=== PATIENT | male | born 1945 ===

== ENCOUNTER → 2017-11-24 | Outpatient (CLI) | payer MEDICARE, BC ==
[~2017-11-24] MED LIST: ASPI81EC; ATOR10; DIPH50 PO; FINA5; HYDACE5 PO; MULVITMIND
== END | disposition home or self-care (01) ==
LOC: LAB SHORT 14:03 → PLD 14:03
DX: L57.0 Actinic keratosis (principal)
CPT/HCPCS: 88305

== ENCOUNTER 2019-06-15 16:28 | Emergency (ER) | payer OTHER, MEDICARE, BC ==
[~2019-06-15] VITALS: Ht 167.6 cm; Wt 72.6 kg
== END 2019-06-15 19:49 | disposition home or self-care (01) ==
LOC: ER 16:28
DX: S51.812A Laceration without foreign body of left forearm, initial encounter (principal); W29.3XXA Contact with powered garden and outdoor hand tools and machinery, initial encounter; I10 Essential (primary) hypertension; E78.5 Hyperlipidemia, unspecified
CPT/HCPCS: 12004; 90471; 90714; 99283-25

== ENCOUNTER 2023-10-22 08:50 | Inpatient (IN) | payer OTHER, MEDICARE, BC ==
[~2023-10-22] VITALS: Ht 167.6 cm; Wt 78.6 kg
[2023-10-22 09:50] LABS: BASOPHILS ABSOLUTE AUTO 0.06 K/mm3 (0.00-0.23); BASOPHILS PERCENT AUTO 0 % (0-2); EOSINOPHILS ABSOLUTE AUTO 0.21 K/mm3 (0.00-0.68); EOSINOPHILS PERCENT AUTO 2 % (0-6); Hematocrit 47.2 % (37.0-53.0); Hemoglobin 16.3 g/dL (13.5-17.5); IMMATURE GRAN ABSOLUTE AUTO 0.08 K/mm3 (0.00-0.10); IMMATURE GRAN PERCENT AUTO 1 % (0-1); LYMPHOCYTES ABSOLUTE AUTO 1.47 K/mm3 (0.84-5.20); LYMPHOCYTES PERCENT AUTO 11 % (21-46); MONOCYTES ABSOLUTE AUTO 1.22 K/mm3 (0.16-1.47); MONOCYTES PERCENT AUTO 9 % (4-13); Mean Corpuscular HGB 29.6 pg (26.0-34.0); Mean Corpuscular HGB Conc 34.5 g/dL (31.5-36.5); Mean Corpuscular Volume 86 fL (80-100); Mean Platelet Volume 10.1 fL (9.1-12.4); NEUTROPHILS ABSOLUTE AUTO 10.67 K/mm3 (1.96-9.15); NEUTROPHILS PERCENT AUTO 78 % (41-73); Platelet Count 227 K/mm3 (150-400); RDW Coefficient Variation 13.7 % (11.7-14.2); RDW Standard Deviation 42.8 fL (35.1-46.3); Red Blood Cell Count 5.51 M/mm3 (4.30-5.90); White Blood Cell Count 13.71 K/mm3 (4.00-11.30)
[2023-10-22 10:28] LABS: Albumin, Blood 3.3 g/dL (3.4-5.0); Albumin/Globulin Ratio 0.8 (0.8-1.8); Bilirubin, Total 0.9 mg/dL (0.1-1.0); Bun/Creatinine Ratio 10.6 (12.0-20.0); Calcium, Blood 9.3 mg/dL (8.5-10.1); Creatinine, Blood 1.13 mg/dL (0.60-1.20); Potassium, Blood 4.2 mmol/L (3.5-5.5); Total Protein, Blood 7.3 g/dL (6.4-8.2)
[2023-10-22] MEDS ORDERED: LOSARTAN POTASS25 M2 PO ×2 (10:36)
[2023-10-22 11:44] LABS: Anti-Xa UFH, PHA Monitoring <0.10 IU/mL; International Normalized Ratio 1.04; Prothrombin Time Results 10.9 Sec (9.7-11.5)
[2023-10-22] MEDS ORDERED: Dose Adjust by Pharmacy XX STA ×2 (11:49→19:13)
[2023-10-22] MEDS ORDERED: Heparin Sodium 5000 Units/ML 1ML MDV IV ONE (11:50)
[2023-10-22] MEDS ORDERED: Heparin Sodium,Porcine/0.5 NS 500 ML IV SCH (11:50)
[2023-10-22] MEDS ORDERED: Acetaminophen 325 MG TABLET PO PRN (15:35)
[2023-10-22] MEDS ORDERED: TraMADol HCl 50 MG Tab PO PRN (15:35)
[2023-10-22] MEDS ORDERED: FLU VACC QS2023-24(6MOS UP)/PF 60 MCG/0.5 ML SYRINGE IM SCH (15:35)
[2023-10-22 17:29] VITALS: BP 163/83
[2023-10-22 17:30] VITALS: BP 146/87
--- NOTE | 2023-10-22 17:30 | NUR ---
INITIAL ASSESSMENT PATIENT ARRIVED TO UNIT AT 1720. PATIENT ALERT AND ORIENTED X 4, AFEBRILE. PATIENT STATES HE USES A CANE TO GET AROUND AT HOME AND THAT HE TAKES CARE OF HIS . PATIENT SBA IS WEAK AND OVER-ESTIMATES HIS ABILITIES. PATIENT STATES HE IS DIZZY UPON FIRST STANDING UP. PATIENT SATTING 90% AND GREATER ON RA. LUNGS CLEAR IN UPPER LOBES AND DIMINISHED IN LOWER LOBES. PATIENT IN SR, HR IN THE 80S. SBP IN THE 140S. 2+ IN LLE. GI AND WNL. SCATTERED BRUISES NOTED. HEPARIN DRIP INFUSING AT 18 UNITS/ KG/ HOUR. BED LOW, CALL LIGHT IN REACH. CARE CONTINUES.
[2023-10-22] MEDS ORDERED: OMEP20ER PO ×2 (17:33)
[2023-10-22] MEDS ORDERED: EZET10 PO ×2 (17:34)
--- NOTE | 2023-10-22 18:02 | NUR ---
LONG DISCUSSION WITH PATIENT ON CODE STATUS. PATIENT WANTED TO CHANGE FROM DNI TO FULL CODE. PATIENT STATED HE WOULD NOT WANT FEEDING TUBE OR ANYTHING SENIOR LIVING OR DRAWN OUT. DR. GENAO INFORMED. ORDER RECEIVED TO CHANGE CODE STATUS.
--- NOTE | 2023-10-22 18:57 | NUR ---
SHIFT SUMMARY NO ACUTE CHANGES SINCE PATIENT'S ARRIVAL FROM ED. AND SONE HERE TO VISIT. HEPARIN REMAINS AT 18 UNITS/ KG/ HOUR. BED LOW, CALL LIGHT IN REACH. NO COMPLAINTS AT THIS TIME. REPORT WILL BE GIVEN TO ASSUMING RAILROAD CAR LETTERER NURSE SHORTLY.
[2023-10-22 19:30] VITALS: BP 1145/78
--- NOTE | 2023-10-22 22:12 | NUR ---
ASSSUMPTION OF CARE: PATIENT IS ALERT AND ORIENTED X 4 WITH NO IMMEDIATE CONCERNS. HEPARIN GTT NOW RUNNING AT 15 UNITS, 23.7RATE. WHICH WAS A DECREASE FROM START OF THE SHIFT OF 18 UNITS. DENIES CHEST PAIN PRESSURE OR SOB. DOES ENDOSES MILD DIZZINESS WITH STANDING, AND DYSPNEA WITH EXERTIONN. LLE +2 EDEMA. PPP, BUT FAINT ON AFFECTED SIDE. PATIENT IS VERY PLEASANT COOPERATIVE WITH CARE ABLE TO MAKE NEEDS KNOWN, NO CONCERNS AT THIS TIME.
[2023-10-22 23:46] VITALS: BP 137/84
[2023-10-23 02:36] LABS: BASOPHILS ABSOLUTE AUTO 0.07 K/mm3 (0.00-0.23); BASOPHILS PERCENT AUTO 1 % (0-2); EOSINOPHILS ABSOLUTE AUTO 0.38 K/mm3 (0.00-0.68); EOSINOPHILS PERCENT AUTO 4 % (0-6); Hematocrit 42.5 % (37.0-53.0); Hemoglobin 14.6 g/dL (13.5-17.5); IMMATURE GRAN ABSOLUTE AUTO 0.06 K/mm3 (0.00-0.10); IMMATURE GRAN PERCENT AUTO 1 % (0-1); LYMPHOCYTES ABSOLUTE AUTO 1.29 K/mm3 (0.84-5.20); LYMPHOCYTES PERCENT AUTO 12 % (21-46); MONOCYTES ABSOLUTE AUTO 1.05 K/mm3 (0.16-1.47); MONOCYTES PERCENT AUTO 10 % (4-13); Mean Corpuscular HGB 29.1 pg (26.0-34.0); Mean Corpuscular HGB Conc 34.4 g/dL (31.5-36.5); Mean Corpuscular Volume 85 fL (80-100); Mean Platelet Volume 9.9 fL (9.1-12.4); NEUTROPHILS ABSOLUTE AUTO 8.14 K/mm3 (1.96-9.15); NEUTROPHILS PERCENT AUTO 74 % (41-73); Platelet Count 263 K/mm3 (150-400); RDW Coefficient Variation 13.8 % (11.7-14.2); RDW Standard Deviation 42.7 fL (35.1-46.3); Red Blood Cell Count 5.02 M/mm3 (4.30-5.90); White Blood Cell Count 10.99 K/mm3 (4.00-11.30)
[2023-10-23 03:01] LABS: Bun/Creatinine Ratio 9.9 (12.0-20.0); Calcium, Blood 8.7 mg/dL (8.5-10.1); Creatinine, Blood 1.11 mg/dL (0.60-1.20)
[2023-10-23 03:09] VITALS: BP 131/78
[2023-10-23] MEDS ORDERED: Dose Adjust by Pharmacy XX STA ×3 (03:36→17:33)
--- NOTE | 2023-10-23 07:30 | NUR ---
INITIAL ASSESSMENT: Patient is lying in bed with eyes closed, resp e/u. He wakes easily with verbal stimuli. He is alert and oriented x4. He reports some mild tenderness behind the left knee, he declines pain medicine for this at this time. HRR.LS DIM in the bases, his saturations are mid 90s on RA. BT+. LLE is significantly more swollen with 1+ pitting edema. LLE is warm to the touch. PPP. He has heparin gtt infusing at 12u/kg/hr. He is asking to get OOB to the bathroom, he is able to ambulate to the bathroom with SBA. He is back in bed, denies other needs at this time. Call light in reach.
[2023-10-23 07:36] VITALS: BP 140/86
[2023-10-23] MEDS ORDERED: Losartan Potassium 25 MG Tab PO SCH (09:00)
[2023-10-23 11:05] VITALS: BP 137/78
[2023-10-23 16:30] VITALS: BP 137/83
--- NOTE | 2023-10-23 17:38 | NUR ---
Summary: Patient has been alert and oriented x4 T/O the shift. He has had mild pain behind his left knee, he has not required any medications for pain. HRR SR in the 70s-90s, SBP in the 130s-140s. His LS are dim in the bases, biox has been 93-97% on RA. BT+. He has been a SBA to the bathroom. Hep drip has been adjusted from 12u/kg/hr down to 10 u/kg/hr. No acute changes this shift. Will report to oncoming RN.
[2023-10-23 19:15] VITALS: BP 130/83
--- NOTE | 2023-10-23 22:22 | NUR ---
AOS: PATIENT ONLY IMPROVING, MINIMAL CHAGNE FROM EOS. PATIENT NOW ON 10 U OF HEPARIN, DECLINES CHEST PAIN PRESSURE OR SOB. NO CONCERNS FROM THIS RN AT THIS TIME, SWELLING IN AFFFECTED LEG IMPROVING, NOTED FROM THIS SHIFT TO EOS ON PREVUIOUS SHIFT. DENIES VOIDING ISSUES FOR BOWEL OR BLADDER, SMALL BM TODAY AM ENDORSED BY PATIENT.
[2023-10-24 01:30] VITALS: BP 146/86
[2023-10-24 03:15] VITALS: BP 116/77
[2023-10-24 06:21] LABS: BASOPHILS ABSOLUTE AUTO 0.07 K/mm3 (0.00-0.23); BASOPHILS PERCENT AUTO 1 % (0-2); EOSINOPHILS ABSOLUTE AUTO 0.31 K/mm3 (0.00-0.68); EOSINOPHILS PERCENT AUTO 3 % (0-6); Hematocrit 44.5 % (37.0-53.0); IMMATURE GRAN ABSOLUTE AUTO 0.06 K/mm3 (0.00-0.10); IMMATURE GRAN PERCENT AUTO 1 % (0-1); LYMPHOCYTES ABSOLUTE AUTO 1.24 K/mm3 (0.84-5.20); LYMPHOCYTES PERCENT AUTO 11 % (21-46); MONOCYTES ABSOLUTE AUTO 0.92 K/mm3 (0.16-1.47); MONOCYTES PERCENT AUTO 8 % (4-13); Mean Corpuscular HGB 28.7 pg (26.0-34.0); Mean Corpuscular HGB Conc 33.7 g/dL (31.5-36.5); Mean Corpuscular Volume 85 fL (80-100); Mean Platelet Volume 10.1 fL (9.1-12.4); NEUTROPHILS ABSOLUTE AUTO 8.53 K/mm3 (1.96-9.15); NEUTROPHILS PERCENT AUTO 77 % (41-73); Platelet Count 258 K/mm3 (150-400); RDW Coefficient Variation 13.7 % (11.7-14.2); RDW Standard Deviation 42.5 fL (35.1-46.3); Red Blood Cell Count 5.22 M/mm3 (4.30-5.90); White Blood Cell Count 11.13 K/mm3 (4.00-11.30)
[2023-10-24] MEDS ORDERED: Dose Adjust by Pharmacy XX STA (06:41)
[2023-10-24 06:46] LABS: Bun/Creatinine Ratio 12.7 (12.0-20.0); Calcium, Blood 9.3 mg/dL (8.5-10.1); Creatinine, Blood 1.1 mg/dL (0.60-1.20); Potassium, Blood 4.1 mmol/L (3.5-5.5)
--- NOTE | 2023-10-24 06:54 | NUR ---
NO CHANGES FROM PREVIOUS SHIFT. HEPARIN STILL INFUSING AT 10 NO CHANGE. PATIENT COOPERATIVE PELASANT WITH CARE, A/O X 4. DENIES CHEST PAIN PRESSURE OR SOB. MINIMAL IMPROVEMENT ALREADY TO LLE.
--- NOTE | 2023-10-24 07:30 | NUR ---
INITIAL ASSESSMENT: Patient is alert and oriented x4, he is OOB to the bathroom. He reports minimal pain behind his left knee, he states this has improved since he was admitted. He C/O minimal pain in his left groin, he states he fell and has been having left hip pain since, he did PT/OT and was told he may need a hip surgery to fix it. HRR, SR in the 80s-90s. LS DIM in the bases, he is 97% on RA. He denies SOB or chest pain at this time. BT+, pt states he had a BM this morning. He is able to void using the bathroom. His LLE has 2+ pitting edmea to LLE. VSS. He denies other needs at this time. Call light in reach.
[2023-10-24 07:31] VITALS: BP 153/84
[2023-10-24 12:36] VITALS: BP 134/82
--- NOTE | 2023-10-24 16:00 | NUR ---
Upon receiving a referral for spiritual care, I visited the patient. He is alone for most of my visit but his spouse, Sujatha, and dtr arrived toward the end of the conversation. Patient talks about his medical issues, his 30 year career for [employer] and his strong Yazidi dolores. He speaks about his [address] acres past [place], the solid investments he has made and his grown children and their professions. He shares about his service in the [employer] and is tearful when talking about his future. I normalize his experience, reinforce the helpful attitudes and practices, and provide therapeutic listening and prayer. Patient responded well and showed signs of greater peace. I will continue to remain available to patient and family.
--- NOTE | 2023-10-24 16:13 | NUR ---
Spiritual care visit conducted. Patient is lying in bed and alert. He immediately tells me about his medical history and current issues, about the grief and loss of freedom, mobility, hobbies and friends because of his medical problems. We discuss his coping skills and resources, his belief in God and his family unit complications. We explore ways to frame his past, present and future in new ways that lend to greater hope, and the ways that he can still find meaning, purpose and varghese. I normalize his feelings and fears, and provide grief support, therapeutic listening, and prayer. Patient responded well and showed signs of an increase in peace and hope. I will continue to remain available to patient and family.
[2023-10-24 16:22] VITALS: BP 149/88
[2023-10-24 19:04] VITALS: BP 1448/92
--- NOTE | 2023-10-24 20:23 | NUR ---
ASSUMPTION OF CARE: CARDIOLOGY AND VASCULAR PROVIDERS CONSULTED WITH PATIENT TODAY. PLAN FOR COBRA TO [facility], PATIENT WOULD LIKE IF AVAIABLE AND APPROPRIATE BY PROVIDERS TO SEE IF [facility] [place] WOULD BE AN OPTION FOR TRANSFER. DENIES CHEST PAIN PRESSURE OR SOB. HEPARIN STILL INFUSING. ON RA, SPO2 92-96%, HR 99 CURRENLTY. VOIDING IN THE URINAL BEDREST. NO ACUTE CONCERNS. LLE STILL EDMATOUS AND HOT.
[2023-10-25] VITALS (8 sets, daily range): BP systolic 117–139; BP diastolic 70–91
[2023-10-25 05:01] LABS: BASOPHILS ABSOLUTE AUTO 0.05 K/mm3 (0.00-0.23); BASOPHILS PERCENT AUTO 0 % (0-2); EOSINOPHILS ABSOLUTE AUTO 0.25 K/mm3 (0.00-0.68); EOSINOPHILS PERCENT AUTO 2 % (0-6); Hematocrit 45.6 % (37.0-53.0); Hemoglobin 15.6 g/dL (13.5-17.5); IMMATURE GRAN ABSOLUTE AUTO 0.07 K/mm3 (0.00-0.10); IMMATURE GRAN PERCENT AUTO 1 % (0-1); LYMPHOCYTES ABSOLUTE AUTO 1.56 K/mm3 (0.84-5.20); LYMPHOCYTES PERCENT AUTO 13 % (21-46); MONOCYTES ABSOLUTE AUTO 0.94 K/mm3 (0.16-1.47); MONOCYTES PERCENT AUTO 8 % (4-13); Mean Corpuscular HGB Conc 34.2 g/dL (31.5-36.5); Mean Corpuscular Volume 85 fL (80-100); Mean Platelet Volume 9.8 fL (9.1-12.4); NEUTROPHILS ABSOLUTE AUTO 8.87 K/mm3 (1.96-9.15); NEUTROPHILS PERCENT AUTO 76 % (41-73); Platelet Count 316 K/mm3 (150-400); RDW Coefficient Variation 13.8 % (11.7-14.2); RDW Standard Deviation 42.6 fL (35.1-46.3); Red Blood Cell Count 5.38 M/mm3 (4.30-5.90); White Blood Cell Count 11.74 K/mm3 (4.00-11.30)
--- NOTE | 2023-10-25 05:26 | NUR ---
EOS: NO CHANGES FROM ASSUMPTION OF CARE
[2023-10-25 06:38] LABS: Bun/Creatinine Ratio 11.7 (12.0-20.0); Creatinine, Blood 1.11 mg/dL (0.60-1.20); Potassium, Blood 4.1 mmol/L (3.5-5.5)
--- NOTE | 2023-10-25 15:24 | NUR ---
PT IS ALERT AND ORIENTED X4, HE HAS BOTED ANXIETY THAT WAXES AND WANES. HE IS PLEASANT AND COOPERATIVE, SLIGHTLY FIXATED ON PENDING TRANSFER TO [facility] HE REPORTS THAT HE WAS TOLD "I'D BE LEAVING AROUND NOON TODAY" PT IS EDUCATED THAT A BED HAS NOT BEEN ASSIGNED AT [facility] THAT NO TIME IS SLOTTED FOR HIS DEPARTURE. HE DENIES CP OR SOB. LUNG SOUNDS ARE CLEAR TO DIMENISHED T/O. HE IS ON RA. VSS. THERE ARE NO SIGNS OF RESPIRATORY DISTRESS, NO NASAL FLARRING. ABD SOFT. URINE OUTPUT GOOD, PT USES URINAL, URINE YELLOW. HE CONTINUES ON HEPARIN INFUSION, THERE HAS NOT BEEN A RATE CHANGE DURING THIS SHIFT AT THE TIME OF THIS NOTE. SKIN AND INTACT. THERE IS 1+ EDEMA NOTED TO LT LEG, NO PAIN TO PALPATION. HE HAS BEEN ORDERED TO BE BEDREST, WITH NO FLEXION OF KNEE, PT IS NON-COMPLIANT WITH THIS. PT IS EDUCATED ABOUT DANGERS OF NON-COMPLIANCE, HE EXPRESSED UNDERSTANDING AND STS "IT COULD HAPPEN ANYTIME", FAMILY IS AT THE BEDSIDE DURING THIS DISCUSSION. VSS. NADN. PEDAL PULSES STRONG BILAT
[2023-10-26] VITALS (9 sets, daily range): BP systolic 120–141; BP diastolic 73–93
[2023-10-26 03:18] LABS: BASOPHILS ABSOLUTE AUTO 0.07 K/mm3 (0.00-0.23); BASOPHILS PERCENT AUTO 1 % (0-2); EOSINOPHILS ABSOLUTE AUTO 0.33 K/mm3 (0.00-0.68); EOSINOPHILS PERCENT AUTO 3 % (0-6); Hematocrit 46.1 % (37.0-53.0); Hemoglobin 15.4 g/dL (13.5-17.5); IMMATURE GRAN ABSOLUTE AUTO 0.08 K/mm3 (0.00-0.10); IMMATURE GRAN PERCENT AUTO 1 % (0-1); LYMPHOCYTES ABSOLUTE AUTO 1.53 K/mm3 (0.84-5.20); LYMPHOCYTES PERCENT AUTO 12 % (21-46); MONOCYTES ABSOLUTE AUTO 1.09 K/mm3 (0.16-1.47); MONOCYTES PERCENT AUTO 8 % (4-13); Mean Corpuscular HGB 28.6 pg (26.0-34.0); Mean Corpuscular HGB Conc 33.4 g/dL (31.5-36.5); Mean Corpuscular Volume 86 fL (80-100); NEUTROPHILS PERCENT AUTO 76 % (41-73); Platelet Count 312 K/mm3 (150-400); RDW Coefficient Variation 13.8 % (11.7-14.2); RDW Standard Deviation 43.1 fL (35.1-46.3); Red Blood Cell Count 5.39 M/mm3 (4.30-5.90)
--- NOTE | 2023-10-26 06:37 | NUR ---
End of shift note. Pt has rested well overnight. No complaints of pain or SOB. O2 sats stable. Noted edema to LLE. Pt has been OOB to the bathroom despite the recommendations to remain on bedrest. Pt is able to make needs known, call light is within reach.
[2023-10-26] MEDS ORDERED: Dose Adjust by Pharmacy XX STA (10:05)
--- NOTE | 2023-10-26 10:45 | NUR ---
AM NOTE: ALERT AND ORIENTED X4. ABLE TO MOVE ALL EXTREMITIES WNL. PATIENT INSTRUCTED BY DR. MARTINEZ THAT LESS MOVEMENT IS BETTER, BUT OKAY WITH MINIMAL MOVEMENT UP TO BSC WITH ASSISTANCE. WEARING GLASSES. AND DAUGHTER AT BEDSIDE THIS AM FOR DR. MICHELLE NELSON. TELE SHOWING SR/ST WITH HR 80-100'S. DENIES CHEST PAIN/PRESSURE/PALPIATIONS. BP STABLE. HEPARIN GTT INFUSING PER EMAR. LLE EDEMA, PER PATIENT HE THINKS IT HAS REMAINED THE SAME. PATIENT PENDING TRANSFER. ON ROOM AIR SATING ABOVE 95%. DENIES SOB/COUGH. LUNGS SOUNDING CLEAR AND DIMINISHED IN BASES. RR 16-18 THIS AM. EVEN AND UNLABORED RESPIRATIONS. BOWEL TONES PRESENT. DENIES ABDOMINAL PAIN/NAUSEA. GETTING UP MINIMALLY TO BATHROOM/BSC WITH ASSISTANCE. EATING AND VOIDING WNL. ATTENDS IN PLACE. SKIN OVERALL SCATTERED WITH BRUISES. PATIENT SITTING UPRIGHT IN BED AT THIS TIME, DENIES NEEDS.
--- NOTE | 2023-10-26 12:46 | NUR ---
DR. HAYWARD AT BEDSIDE, PATIENT COMPLAINS OF BRIEF EPISODE OF DIZZINESS AND LEFT LEG NUMBNESS. VITALS WNL WITH HR 80-90'S. SBP 120'S. SATING 97% ON ROOM AIR. BLOOD SUGAR CHECKED READING 117. WILL CONTINUE TO MONITOR. DR. HAYWARD TO CALL TRANSFER FACILITIES. DIZZINESS RESOLVED. NO CHANGES TO LUNG SOUNDS. THIS RN EDUCATED ON BEDREST AT THIS TIME DUE TO SYMPTOMS.
--- NOTE | 2023-10-26 17:48 | NUR ---
SHIFT SUMMARY: SEE PREVIOUS NOTES FOR UPDATES. PATIENT REMAINS ON HEPARIN GTT PER EMAR. DENIES ANY FURTHER DIZZINESS. UP TO BATHROOM X1 TODAY FOR BOWEL MOVEMENT. TELE REMAINS SR WITH HR 90'S. SBP 130-120'S. SATING 96-97% ON ROOM AIR. PATIENT REQUESTING HOME OMEPRAZOLE DOSE THIS EVENING. DR. HAYWARD CALLED AND OMEPRAZOLE ORDERS IN PLACE. DAUGHTER AND AT BEDSIDE THROUGHOUT SHIFT. THIS RN CONTINUALLY PROVIDING UPDATES ABOUT WAITLISTS FOR TRANSFER. LLE REMAINS EDEMATOUS/SWOLLEN BUT NOT INCREASING IN SIZE. CALL LIGHT IN REACH. PATIENT EATING DINNER AT THIS TIME.
[2023-10-26] MEDS ORDERED: Omeprazole 20 MG CapCR PO SCH (17:50)
--- NOTE | 2023-10-26 21:34 | NUR ---
PT JOSE TRANSFERRED TO [facility] UN[facility] 4422 REPORT GIVEN TO PANDA CHOI. SON PAWEL WAS NOTIFIED OF TRANSFER WELL. VITALS HRR ST 98, BP 125/75, SATS ABOVE 95% ON RA, RR 15, AFEBRILE. PT ON HEPARIN GTT AT 10U/KG/HR. PT HAS NO CHEST PAIN/PRESSURE SINCE SHIFT CHANGE MILD SOB WITH SOME DEEP BREATHS. NO OTHER ISSUES ENCOUNTERED, ALL BELONGINGS SENT WITH THE PT, TRANSPORT ARRIVED AT APPROX 2030, TRANSPORTED VIA GURNEY.
[2023-10-29 18:43] LABS: ANTITHROMBIN, ENZYMAT ACTIVITY 92 % (76-128); APC RESISTANCE 4.03 (>=2.00); B2GLYCOPROTEIN 1, IGG ANTIBODY <10 SGU (<=20); B2GLYCOPROTEIN 1, IGM ANTIBODY <10 SMU (<=20); CARDIOLIPIN ANTIBODY IGG <10 GPL (<=14); CARDIOLIPIN ANTIBODY IGM <10 MPL (<=12); FACTOR V LEIDEN BY PCR Not Done; FACV REF SPECIMEN Not Done; HOMOCYSTEINE, TOTAL 10 umol/L (0-15); PROTEIN C FUNCTIONAL 128 % (83-168); PROTEIN S AG FREE 98 % (74-147); PROTHROMBIN F2 G20210A VARIANT Negative; PROTHROMBIN TIME 16.5 sec (12.0-15.5); PT PCR SPECIMEN Whole Blood; PTT-D HEPARIN NEUTRALIZED 40 sec (32-48); PTT-LA SCREEN (PTT-D) >150 sec (32-48); REPTILASE TIME 15.7 sec (<=21.9); THROMBIN TIME >150.0 sec (14.7-19.5)
== END 2023-10-26 20:40 | disposition short-term general hospital (02) | DRG 299 ==
LOC: ER 08:50 → PCU 16:41
PROVIDERS: Emergency Medicine; ADMIT Family Medicine
DX: I82.412 Acute embolism and thrombosis of left femoral vein (principal); I26.92 Saddle embolus of pulmonary artery without acute cor pulmonale; E87.1 Hypo-osmolality and hyponatremia; I10 Essential (primary) hypertension; E78.5 Hyperlipidemia, unspecified; D72.829 Elevated white blood cell count, unspecified; Z85.46 Personal history of malignant neoplasm of prostate; Z66 Do not resuscitate; R06.00 Dyspnea, unspecified; R00.0 Tachycardia, unspecified
CPT/HCPCS: 36415; 71046; 71260; 80048; 80053; 81240; 82947; 83090; 83880; 84484; 85025; 85300; 85303; 85306; 85307; 85520; 85525; 85610; 85613; 85635; 85670; 85730; 86146; 86147; 93005; 93010; 93242; 93306; 93971; 96365-59; 96366-59; 99285-25; A9270; J1644; Q9967

== ENCOUNTER 2023-10-31 11:46 | Inpatient (IN) | payer OTHER, MEDICARE, BC ==
[~2023-10-31] VITALS: Ht 167.6 cm; Wt 74.4 kg
[~2023-10-31 11:46] MED LIST changes: +EZET10 PO; +LOSARTAN POTASS25 M2 PO; +OMEP20ER PO
[2023-10-31 12:38] LABS: BASOPHILS ABSOLUTE AUTO 0.06 K/mm3 (0.00-0.23); BASOPHILS PERCENT AUTO 1 % (0-2); EOSINOPHILS ABSOLUTE AUTO 0.42 K/mm3 (0.00-0.68); EOSINOPHILS PERCENT AUTO 4 % (0-6); Hemoglobin 15.7 g/dL (13.5-17.5); IMMATURE GRAN ABSOLUTE AUTO 0.06 K/mm3 (0.00-0.10); IMMATURE GRAN PERCENT AUTO 1 % (0-1); LYMPHOCYTES ABSOLUTE AUTO 1.51 K/mm3 (0.84-5.20); LYMPHOCYTES PERCENT AUTO 14 % (21-46); MONOCYTES ABSOLUTE AUTO 1.05 K/mm3 (0.16-1.47); MONOCYTES PERCENT AUTO 9 % (4-13); Mean Corpuscular HGB 29.2 pg (26.0-34.0); Mean Corpuscular HGB Conc 34.1 g/dL (31.5-36.5); Mean Corpuscular Volume 86 fL (80-100); Mean Platelet Volume 9.9 fL (9.1-12.4); NEUTROPHILS ABSOLUTE AUTO 8.07 K/mm3 (1.96-9.15); NEUTROPHILS PERCENT AUTO 72 % (41-73); Platelet Count 338 K/mm3 (150-400); RDW Coefficient Variation 13.9 % (11.7-14.2); RDW Standard Deviation 42.7 fL (35.1-46.3); Red Blood Cell Count 5.37 M/mm3 (4.30-5.90); White Blood Cell Count 11.17 K/mm3 (4.00-11.30)
[2023-10-31 13:13] LABS: Albumin, Blood 3.3 g/dL (3.4-5.0); Albumin/Globulin Ratio 0.8 (0.8-1.8); Bilirubin, Total 0.4 mg/dL (0.1-1.0); Bun/Creatinine Ratio 15.3 (12.0-20.0); Calcium, Blood 9.5 mg/dL (8.5-10.1); Creatinine, Blood 1.11 mg/dL (0.60-1.20); Globulin, Blood 3.9 g/dL (2.2-4.0); Potassium, Blood 4.3 mmol/L (3.5-5.5); Total Protein, Blood 7.2 g/dL (6.4-8.2)
[2023-10-31] MEDS ORDERED: ELIQUIS5 M2 PO ×2 (13:27)
[2023-10-31] MEDS ORDERED: Acetaminophen 325 MG TABLET PO PRN (16:35)
[2023-10-31] MEDS ORDERED: Ondansetron HCl 2 MG / ML 2ML Vial IV PRN (16:35)
[2023-10-31] MEDS ORDERED: FLU VACC QS2023-24(6MOS UP)/PF 60 MCG/0.5 ML SYRINGE IM SCH (16:35)
[2023-10-31 16:52] LABS: International Normalized Ratio 1.09; Prothrombin Time Results 11.4 Sec (9.7-11.5)
[2023-10-31] MEDS ORDERED: Heparin Sodium,Porcine/0.5 NS 500 ML IV SCH (17:00)
[2023-10-31] MEDS ORDERED: Heparin Sodium 5000 Units/ML 1ML MDV IV ONE (17:00)
[2023-10-31 18:23] VITALS: BP 142/117
[2023-10-31 20:00] VITALS: BP 130/78
[2023-10-31] MEDS ORDERED: Docusate Sodium 100 MG Cap PO SCH (21:00)
--- NOTE | 2023-10-31 22:58 | NUR ---
ASSUMPTION OF CARE THIS RN ASSUMED CARE OF PT AT 1900, REPORT FROM JACINDA RN. PT LYING IN BED, WATCHING TV. PT PLEASANT AND JOKING WITH STAFF; A&O X4. VSS; SBP 130, SR WITH RATE IN 90'S, RR 17, SPO2 96% ON RA, TEMP 97.4. PT DENIES PAIN IN LOWER EXTREMITY. LLE SWOLLEN, WARM AND SLIGHT REDDNESS NOTED COMPARED TO RLE. PT DENIES SOB OR DIFFICULTY BREATHING, DENIES CP/PRESSURE, PALPITAIONS, N/V. PT DOES REPORT VERY MILD DIZZINESS WHEN FIRST SITTING UP FROM BED - PT AWARE AND ABLE TO TAKE HIS TIME IN GETTING UP. PT'S GAIT STEADY WHEN USING RESTROOM. PT EDUCATED ON USING BSC AND MINIMAL AMBULATING, PT EXPRESSES HE WOULD LIKE TO USE RESTROOM AND IS GOING TO. PT EXPRESSES HE DOES NOT WANT TO USE BSC AND WILL NOT BE ABLE TO. EDUCATION REINFORED AND PT VERBALIZES UNDERSTANDING. PT DENIES ANY ISSUES OR CONCERNS GI/. SKIN INTACT. HEPARIN INFUSING PER EMAR. CALL LIGHT IN REACH
[2023-11-01] VITALS (15 sets, daily range): BP systolic 93–131; BP diastolic 69–82
[2023-11-01] MEDS ORDERED: Dose Adjust by Pharmacy XX STA ×3 (00:43→15:36)
--- NOTE | 2023-11-01 00:46 | NUR ---
UPDATE HEPARIN GTT ON HOLD FOR 1 HOUR PER PHARMACY. RN TO RESTART AT 15 U/KG/HR IN ON HOUR.
[2023-11-01] MEDS ORDERED: Omeprazole 20 MG CapCR PO SCH (06:00)
--- NOTE | 2023-11-01 07:31 | NUR ---
SHIFT SUMMARY PT REMAINS A&O X4. VSS ; SBP 1 TEENS - 120'S, SR HR IN 90'S, SPO2 >93% ON RA. PT DENIES CP/PRESSURE, DIZZINESS, N/V, PAIN. PT DOES REPORT MILD SOB WITH ACTIVITY. LS CLEAR. PT AMBULATING TO RESTROOM, EDUCATION AND BEDREST REINFORCED. AM LABS COMBINED WITH AM APTT LAB DRAW PER PT REQUEST. NO ACUTE CHANGES DURING NIGHT OR FROM ASSUMPTION OF CARE NOTE. WILL UPDATE ONCOMING RN
[2023-11-01 08:16] LABS: BASOPHILS ABSOLUTE AUTO 0.07 K/mm3 (0.00-0.23); BASOPHILS PERCENT AUTO 1 % (0-2); EOSINOPHILS ABSOLUTE AUTO 0.53 K/mm3 (0.00-0.68); EOSINOPHILS PERCENT AUTO 5 % (0-6); Hematocrit 45.4 % (37.0-53.0); Hemoglobin 15.6 g/dL (13.5-17.5); IMMATURE GRAN ABSOLUTE AUTO 0.07 K/mm3 (0.00-0.10); IMMATURE GRAN PERCENT AUTO 1 % (0-1); LYMPHOCYTES ABSOLUTE AUTO 1.16 K/mm3 (0.84-5.20); LYMPHOCYTES PERCENT AUTO 11 % (21-46); MONOCYTES ABSOLUTE AUTO 0.75 K/mm3 (0.16-1.47); MONOCYTES PERCENT AUTO 7 % (4-13); Mean Corpuscular HGB 29.3 pg (26.0-34.0); Mean Corpuscular HGB Conc 34.4 g/dL (31.5-36.5); Mean Corpuscular Volume 85 fL (80-100); NEUTROPHILS ABSOLUTE AUTO 7.62 K/mm3 (1.96-9.15); NEUTROPHILS PERCENT AUTO 75 % (41-73); Platelet Count 347 K/mm3 (150-400); RDW Standard Deviation 43.1 fL (35.1-46.3); Red Blood Cell Count 5.32 M/mm3 (4.30-5.90)
[2023-11-01 08:52] LABS: Albumin, Blood 3.3 g/dL (3.4-5.0); Albumin/Globulin Ratio 0.9 (0.8-1.8); Bilirubin, Total 0.4 mg/dL (0.1-1.0); Bun/Creatinine Ratio 12.1 (12.0-20.0); Calcium, Blood 9.8 mg/dL (8.5-10.1); Creatinine, Blood 1.16 mg/dL (0.60-1.20); Globulin, Blood 3.8 g/dL (2.2-4.0); Magnesium, Blood 2.3 mg/dL (1.6-2.4); Potassium, Blood 4.3 mmol/L (3.5-5.5); Total Protein, Blood 7.1 g/dL (6.4-8.2)
[2023-11-01] MEDS ORDERED: Ezetimibe 10 MG Tab PO SCH (09:00)
[2023-11-01] MEDS ORDERED: Losartan Potassium 25 MG Tab PO SCH (09:00)
--- NOTE | 2023-11-01 10:18 | NUR ---
AM NOTE: PATIENT ALERT AND ORIENTED X4. VERY TALKATIVE AND PLEASENT WITH CARES. MOVING ALL EXTREMITIES WNL. SLIGHT N/T TO LEFT LOWER EXTREMITY COMPARED TO RLE. EDEMA NOTED IN LLE THAT PER PATIENT HAS INCREASED SINCE DISCHARGED FROM [facility]. PEDAL PULSES REMAIN STRONG, NO DISCOLORATION NOTED TO LLE. IR CONSULT IN PLACE. DR. RUIZ BY THIS AM, THIS RN AT BEDSIDE FOR PROVIDER ROUNDING. PATIENT TO REMAIN NPO AT THIS TIME. TELE SHOWING SR WITH HR 90-100'S. BP STABLE WITH SBP 131 THIS AM. DENIES CHEST PAIN/PRESSURE/PALIPTATIONS. ECHO ORDERS IN PLACE. HEPARIN GTT INFUSING PER EMAR. PPP. PATIENT EDUCATED ON BEDREST AND MINIMAL MOVMENT. PATIENT AMB TO BATHROOM IND DESPITE EDUCATION. ON ROOM AIR SATING ABOVE 92%. DENIES SOB/COUGH. EVEN AND UNLABORED RESPIRATIONS. LUNGS SOUNDING CLEAR. PATIENT DENIES SOB WHEN UP. BOWEL TONES PRESENT. PATIENT NPO AT THIS TIME. DENIES ISSUES WITH VOIDING OR SWALLOWING AT BASELINE. SKIN OVERALL C/D/I. DENIES OVERALL PAIN. FAMILY AT BEDSIDE FOR DR. RUIZ ROUNDING. CALL LIGHT IN REACH.
[2023-11-01] MEDS ORDERED: NS 1,000 ML IV ONE ×2 (15:48→15:56)
[2023-11-01] MEDS ORDERED: Heparin Sodium 1000 Units/ML 10ML MDV ONE ×2 (15:48→16:54)
[2023-11-01] MEDS ORDERED: FentaNYL Citrate 50 MCG/ML 2 ML Injection ONE ×2 (15:56→17:15)
[2023-11-01] MEDS ORDERED: Midazolam HCl 1MG / ML 2ML Vial ONE ×2 (15:56→17:14)
--- NOTE | 2023-11-01 16:07 | NUR ---
PATIENT TO HEART CENTER AT THIS TIME. PHARMACY AND OBGYN NURSE NOTIFIED.
--- NOTE | 2023-11-01 18:35 | NUR ---
PATIENT RETURNS FROM DEVULCANIZER OPERATOR AROUND 1800. BILATERAL POPLITEAL VENOUS FLOW STASIS DEVICES IN PLACE. NO SIGNS OF BLEEDING. SITES WNL. PATIENT COMPLAINS OF MILD 4/10 PAIN TO LEFT KNEE, PRN TYLENOL GIVEN. HEPARIN RESTARTED PER DR. RUIZ. PHARMACY NOTIFIED. PATIENT REMAINS SR WITH HR 80-90'S. BP STABLE. PATIENT LAYING FLAT PER DR. RUIZ FOR A COUPLE HOURS. FAMILY AT BEDSIDE AND UPDATED. POST VITALS IN PROGRESS. CALL LIGHT IN REACH.
[2023-11-02] VITALS: BP 104/72
--- NOTE | 2023-11-02 00:30 | NUR ---
UPDATE PCT ULICES SOTELO NOTIFIED THIS RN OF PT WANTING TO AMBULATE TO BATHROOM TO VOID WELL BOTH POPLITEAL FLOW STASIS DEVICES WHERE BLODDY. THIS RN TO BEDSIDE TO ASSESS PT. PT EDUCATED ON NEED TO REDUCE ACTIVITY DUE TO RECENT PROCEDURE WELL POTENTIAL CONSEQUENCES OF DISLODGING A CLOT. PT AGREEABLE TO USE URINAL AT BEDSIDE. PT CONTINUES TO DENY ANY TINGING OR SENSATION LOSS IN EITHER LEG, JUST SOME SITE SORENESS. BOTH SITES THOROUGHLY CLEANED WITH CHLORHEXIDNE AND FLOW STASIS DEVICES TIGHTENED. SITES COVERED WITH NEW TEGADERM WELL.
[2023-11-02 00:38] VITALS: BP 124/73
[2023-11-02] MEDS ORDERED: Dose Adjust by Pharmacy XX STA ×2 (00:42→08:41)
[2023-11-02 04:14] VITALS: BP 119/71
[2023-11-02 04:24] LABS: Hematocrit 42.4 % (37.0-53.0); Hemoglobin 14.3 g/dL (13.5-17.5); Mean Corpuscular HGB 29.2 pg (26.0-34.0); Mean Corpuscular HGB Conc 33.7 g/dL (31.5-36.5); Mean Corpuscular Volume 87 fL (80-100); Mean Platelet Volume 10.2 fL (9.1-12.4); Platelet Count 301 K/mm3 (150-400); RDW Coefficient Variation 14.3 % (11.7-14.2); White Blood Cell Count 10.52 K/mm3 (4.00-11.30)
[2023-11-02 04:48] LABS: Albumin, Blood 2.9 g/dL (3.4-5.0); Albumin/Globulin Ratio 0.8 (0.8-1.8); Bilirubin, Total 0.8 mg/dL (0.1-1.0); Bun/Creatinine Ratio 12.6 (12.0-20.0); Calcium, Blood 9.4 mg/dL (8.5-10.1); Creatinine, Blood 1.19 mg/dL (0.60-1.20); Globulin, Blood 3.5 g/dL (2.2-4.0); Potassium, Blood 4.6 mmol/L (3.5-5.5); Total Protein, Blood 6.4 g/dL (6.4-8.2)
--- NOTE | 2023-11-02 05:05 | NUR ---
SHIFT SUMMARY A/Ox4 AND COOPERATIVE WITH CARE. ANSWERS QUESTIONS APPROPRIATELY AND ABLE TO MAKE HIS NEEDS KNOWN. CARDIAC, REMAINS IN SB-SR 50-80'S WITH NO REPORTS OF CP, PRESSURE, OR DIZZINESS. SBP HAS BEEN STABLE RANGING 100-120'S. RESPIRATORY, MAINTAINS SPO2 >90% ON RA. SOME EXERTIONAL DYSPNEA NOTED. DENIES SOB OR DYSPNEA AT REST. GI/, PT NOW REFUSING TO USE URINAL OR BSC AT BEDSIDE AND ADAMANTLY CHOOSES TO AMBULATE TO BATHROOM .PT EDUCATED OF POTENTIAL DANGERS OF AMBULATING TO BATHROOM DUE TO BLOOD CLOTS, BUT PT CONTINUES TO AMBULATE TO BATHROOM. SOME OOZING NOTED WITH BILAT FLOW STASIS DEVICES. SEE UPDATE NOTE FOR MORE DETAILS. NO MORE OOZING NOTED SINCE SITES WERE SLIGHTLY TIGHTENED. NO TINGLING OR SENSATION LOSS REPORTED IN EITHER EXTREMITY. NO BM THIS SHIFT. HEPARIN gtt IS BEING MANAGED BY PHARMACY AND HAS BEEN INFUSING THROUGHOUT THE NIGHT PER EMAR. PAIN MANAGED WELL WITH PRN TYLENOL. NO NEW ORDERS AT THIS TIME, WILL REPORT TO ONCOMING RN. CHLOÉ BONILLA OF THIS NOTE.
--- NOTE | 2023-11-02 07:00 | NUR ---
Bedside report received from STEPH Norton. Pt is alert, oriented x 4 and pleasantly conversant. Heparin gtt verified at the bedside. FloStasis devices are present, without any signs of active bleeding. Very scant amount of old blood noted underneath the dressings. Errol said that both dressings were changed last night due to pooling of blood underneath them, and that the devices were snugged up to stop the oozing, which was effective. Pt ambulatory to the bathroom this morning, with LEAD AUDITOR stand by assistance offered.
--- NOTE | 2023-11-02 09:56 | NUR ---
Gauze secured with tegederm noted bilaterally popliteal spaces; Daya Bay from [facility] said that she removed the flosasis devices. He ambulated afterwards to the bathroom, said that he had a BM and voided. The dressings at the sites are clean , dry and intact. Pt was given some Tylenol for tenderness at the sites.
--- NOTE | 2023-11-02 10:08 | NUR ---
Family asked questions about discharge, and home medications. Answered according to available information at the time. Dr. Lujan talking with pt and family at bedside at this time.
[2023-11-02 10:29] VITALS: BP 120/69
[2023-11-02 10:30] VITALS: BP 115/68
[2023-11-02 10:31] VITALS: BP 118/76
--- NOTE | 2023-11-02 10:39 | NUR ---
Orthostatic vital signs completed. Pt states a little bit of lightheadedness intially when he stands up which goes away after about a minute.
[2023-11-02] MEDS ORDERED: Rivaroxaban 10 MG Tab PO SCH (12:30)
--- NOTE | 2023-11-02 13:24 | NUR ---
PT evaluation was completed.
[2023-11-02] MEDS ORDERED: XARELTO20 MG PO ×2 (16:15)
--- NOTE | 2023-11-02 16:55 | NUR ---
PT EDUCATION: PT, daughter, and pt's were educated re: discharge instructions, PCP and IR appointments, new medication (Xarelto), s/s GI Bleed, not to take any NSAIDS either.
== END 2023-11-02 17:00 | disposition home or self-care (01) | DRG 270 ==
LOC: ER 11:46 → PCU 16:32
PROVIDERS: Family Medicine Adult Medicine; Physician Assistant; ADMIT Student in an Organized Health Care Education/Training Program
PROC: 06C03ZZ Extirpation of Matter from Inferior Vena Cava, Percutaneous Approach (ICD-10-PCS; principal; 2023-11-01)
PROC: 06CD3ZZ Extirpation of Matter from Left Common Iliac Vein, Percutaneous Approach (ICD-10-PCS; 2023-11-01)
DX: I82.412 Acute embolism and thrombosis of left femoral vein (principal); I26.99 Other pulmonary embolism without acute cor pulmonale; I50.32 Chronic diastolic (congestive) heart failure; I82.432 Acute embolism and thrombosis of left popliteal vein; I82.452 Acute embolism and thrombosis of left peroneal vein; I11.0 Hypertensive heart disease with heart failure; E78.5 Hyperlipidemia, unspecified; I35.0 Nonrheumatic aortic (valve) stenosis; K21.9 Gastro-esophageal reflux disease without esophagitis; Z85.46 Personal history of malignant neoplasm of prostate
CPT/HCPCS: 36415; 71046; 71260; 76937; 80053; 83735; 83880; 84484; 85025; 85027; 85610; 85730; 93005; 93010; 93308; 93321; 93971; 94762; 96374-59; 97116; 97162; 99152; 99153; 99285-25; A9270; C1725; C1753; C1757; C1769; C1894; J1644; J2250; J3010; J7030; Q9967

== ENCOUNTER 2023-11-07 15:18 | Emergency (ER) | payer MEDICARE, BC ==
[~2023-11-07] VITALS: Ht 167.6 cm; Wt 77.1 kg
[~2023-11-07 15:18] MED LIST changes: +ELIQUIS5 M2 PO; +XARELTO20 MG PO
[2023-11-07 16:47] LABS: BASOPHILS ABSOLUTE AUTO 0.08 K/mm3 (0.00-0.23); BASOPHILS PERCENT AUTO 1 % (0-2); EOSINOPHILS ABSOLUTE AUTO 0.44 K/mm3 (0.00-0.68); EOSINOPHILS PERCENT AUTO 3 % (0-6); Hemoglobin 14.8 g/dL (13.5-17.5); IMMATURE GRAN PERCENT AUTO 1 % (0-1); LYMPHOCYTES ABSOLUTE AUTO 1.56 K/mm3 (0.84-5.20); LYMPHOCYTES PERCENT AUTO 12 % (21-46); MONOCYTES ABSOLUTE AUTO 1.11 K/mm3 (0.16-1.47); MONOCYTES PERCENT AUTO 8 % (4-13); Mean Corpuscular HGB 29.2 pg (26.0-34.0); Mean Corpuscular HGB Conc 32.9 g/dL (31.5-36.5); Mean Corpuscular Volume 89 fL (80-100); Mean Platelet Volume 10.4 fL (9.1-12.4); NEUTROPHILS ABSOLUTE AUTO 9.85 K/mm3 (1.96-9.15); NEUTROPHILS PERCENT AUTO 75 % (41-73); Platelet Count 321 K/mm3 (150-400); RDW Coefficient Variation 14.4 % (11.7-14.2); RDW Standard Deviation 46.1 fL (35.1-46.3); Red Blood Cell Count 5.06 M/mm3 (4.30-5.90); White Blood Cell Count 13.14 K/mm3 (4.00-11.30)
[2023-11-07 17:10] LABS: Albumin, Blood 3.4 g/dL (3.4-5.0); Albumin/Globulin Ratio 0.8 (0.8-1.8); Bilirubin, Total 0.3 mg/dL (0.1-1.0); Bun/Creatinine Ratio 17.6 (12.0-20.0); Calcium, Blood 9.1 mg/dL (8.5-10.1); Creatinine, Blood 1.08 mg/dL (0.60-1.20); Potassium, Blood 4.3 mmol/L (3.5-5.5); Total Protein, Blood 7.4 g/dL (6.4-8.2)
[2023-11-07 18:43] VITALS: BP 137/79
== END 2023-11-07 19:37 | disposition home or self-care (01) ==
LOC: ER 15:18
PROVIDERS: Student in an Organized Health Care Education/Training Program
DX: K62.5 Hemorrhage of anus and rectum (principal); Z86.711 Personal history of pulmonary embolism; I10 Essential (primary) hypertension; E78.5 Hyperlipidemia, unspecified; Z79.01 Long term (current) use of anticoagulants; Z79.899 Other long term (current) drug therapy
CPT/HCPCS: 80053; 82272; 85025; 86850; 86900; 86901; 99283

== ENCOUNTER 2024-10-16 05:51 | Day surgery (SDC) | payer MEDICARE, BC ==
[2024-10-16] VITALS (20 sets, daily range): BP systolic 95–147; BP diastolic 57–86
[~2024-10-16] VITALS: Ht 163 cm; Wt 75.8 kg
[~2024-10-16 05:51] MED LIST changes: +VITAMIN D310 MC4 PO
[2024-10-16] MEDS ORDERED: CeFAZolin Sodium 2,000 MG in NS 100 ML IV SCH ×2 (06:20→16:00)
[2024-10-16] MEDS ORDERED: Acetaminophen 500 MG Tab PO SCH ×2 (06:20→16:00)
[2024-10-16] MEDS ORDERED: Ropivacaine 0.5% HCl/Pf 123.125 MG,EPINEPHrine HCL 0.25 MG,Ketorolac Tromethamine 15 MG... INFIL SCH (06:20)
[2024-10-16] MEDS ORDERED: Lactated Ringer's 1,000 ML IV SCH ×2 (06:20→09:20)
[2024-10-16] MEDS ORDERED: Chlorhexidine Mouth Care 15 ML UDC MT SCH (06:20)
[2024-10-16] MEDS ORDERED: OxyCODONE HCL 10 MG TABCR PO SCH (06:20)
[2024-10-16] MEDS ORDERED: Tranexamic Acid 1,000 MG in NS 100 ML IV SCH (06:20)
[2024-10-16] MEDS ORDERED: Metoprolol Tartrate 5 ML IV ONE (07:28)
[2024-10-16] MEDS ORDERED: propofoL 20 ML IV ONE (07:31)
[2024-10-16] MEDS ORDERED: Rocuronium Bromide 10 MG/ML 5ML Injection IV ONE (07:31)
[2024-10-16] MEDS ORDERED: Phenylephrine HCl 100 MCG/ML-NS 10MLSYR (1MG/10ML) ONE (07:31)
--- NOTE | 2024-10-16 07:34 | NUR ---
History, Chart, Medications and Allergies reviewed before start of procedure. Pre-Op teaching done. Pt verbalizes understanding. Patient confirms NPO status and agrees with scheduled surgery. Patient reports completing Chlorhexadine shower X2 prior to admission to hospital. Patient's walking cane, cell phone, and reading glasses transferred to PACU along with rest of belongings.
[2024-10-16] MEDS ORDERED: Albuterol 2.5 MG/3 ML VIAL INH PRN (07:55)
[2024-10-16] MEDS ORDERED: FentaNYL Citrate 50 MCG/ML 2 ML Injection IV PRN ×2 (08:00→08:05)
[2024-10-16] MEDS ORDERED: Labetalol HCL 5 MG/ML 4ML Injection (Single Dose) IV PRN (08:00)
[2024-10-16] MEDS ORDERED: Droperidol 5 mg/2 ml Vial IV PRN (08:00)
[2024-10-16] MEDS ORDERED: Ondansetron HCl 2 MG / ML 2ML Vial IV PRN ×2 (08:00→09:25)
[2024-10-16] MEDS ORDERED: HYDROmorphone HCl/Pf 1MG SYR IV PRN ×3 (08:00→09:15)
[2024-10-16] MEDS ORDERED: FentaNYL Citrate 50 MCG/ML 2 ML Injection ONE ×2 (08:19→09:30)
[2024-10-16] MEDS ORDERED: Sugammadex Sodium 200 MG/2ML SDV (100 MG/ML) ONE (08:19)
[2024-10-16] MEDS ORDERED: Dexamethasone Sod Phos 10 MG/ML 1ML VIAL ONE (08:33)
[2024-10-16] MEDS ORDERED: Ondansetron HCl 2 MG / ML 2ML Vial ONE (08:33)
[2024-10-16] MEDS ORDERED: Promethazine HCl 25 MG Tab PO PRN (09:20)
[2024-10-16] MEDS ORDERED: FLU VACC TS2024-25(6MOS UP)/PF 45 MCG/0.5 ML SYRINGE IM PRN (09:20)
[2024-10-16] MEDS ORDERED: DiphenhydrAMINE HCL 25 MG Cap PO PRN (09:20)
[2024-10-16] MEDS ORDERED: Magnesium Hydroxide Conc 10 ML UDC PO PRN (09:20)
[2024-10-16] MEDS ORDERED: Prochlorperazine Edisylate 10 mg Vial IV PRN (09:25)
[2024-10-16] MEDS ORDERED: Metoclopramide HCl 5MG / ML 2ML Vial IV PRN (09:25)
[2024-10-16] MEDS ORDERED: Bisacodyl 10 MG Supp PR PRN (09:25)
[2024-10-16] MEDS ORDERED: OxyCODONE HCL 5 MG TAB PO PRN ×2 (09:25)
--- NOTE | 2024-10-16 10:23 | NUR ---
PT ARRIVED TO RM 216 FROM PACU AT 1015. PT DROWSY BUT AWAKE AND ORIENTED X4 UPON ARRIVAL TO THE ROOM. PT RATES PAIN AT 2/10. CALL LIGHT PLACED WITHIN REACH AND PT EDUCATED REGARDING USE. L HIP DRESSING C/D/I.
--- NOTE | 2024-10-16 19:43 | NUR ---
SHIFT SUMMARY PT IS POD#0 FROM L JOSE WITH DR. MALLOY. PAIN MANAGED WITH PO PAIN MEDICATION. PT IS A 1 ASSIST WITH GAIT BELT AND WALKER. PT WORKED WITH THERAPY BUT WILL NEED AN ADDITIONAL SESSION TOMORROW PRIOR TO DISCHARGE. PT TOLERATING PO. HE HAS VOIDED. BEDSIDE REPORT GIVEN TO ROBB CHOI.
[2024-10-16] MEDS ORDERED: Docusate Sodium 100 MG Cap PO SCH (21:00)
[2024-10-16] MEDS ORDERED: Ezetimibe 10 MG Tab PO SCH (21:00)
--- NOTE | 2024-10-17 03:27 | NUR ---
SHIFT SUMMARY POD # 1 LEFT JOSE. DRESSING CDI WITH POLAR PACK IN PLACE TO LEFT HIP. A/OX4 VSS. NO ACUTE CHANGES T/O SHIFT. PAIN MANAGED PER EMAR. AMBULATING IN HALLWAYS AND WORKED WITH THERAPY. DERRICK REG DIET. IS VOIDING. ABX INFUSED PER ORDERS. PLAN TO WORK WITH THERAPY AND DC HOME TODAY.
[2024-10-17 04:05] VITALS: BP 134/75
[2024-10-17 05:27] LABS: BASOPHILS ABSOLUTE AUTO 0.03 K/mm3 (0.00-0.23); BASOPHILS PERCENT AUTO 0 % (0-2); EOSINOPHILS ABSOLUTE AUTO 0.02 K/mm3 (0.00-0.68); EOSINOPHILS PERCENT AUTO 0 % (0-6); Hematocrit 39.5 % (37.0-53.0); Hemoglobin 13.5 g/dL (13.5-17.5); IMMATURE GRAN ABSOLUTE AUTO 0.09 K/mm3 (0.00-0.10); IMMATURE GRAN PERCENT AUTO 1 % (0-1); LYMPHOCYTES ABSOLUTE AUTO 1.05 K/mm3 (0.84-5.20); LYMPHOCYTES PERCENT AUTO 5 % (21-46); MONOCYTES ABSOLUTE AUTO 1.51 K/mm3 (0.16-1.47); MONOCYTES PERCENT AUTO 8 % (4-13); Mean Corpuscular HGB 29.3 pg (26.0-34.0); Mean Corpuscular HGB Conc 34.2 g/dL (31.5-36.5); Mean Corpuscular Volume 86 fL (80-100); Mean Platelet Volume 10.9 fL (9.1-12.4); NEUTROPHILS ABSOLUTE AUTO 17.13 K/mm3 (1.96-9.15); NEUTROPHILS PERCENT AUTO 86 % (41-73); Platelet Count 208 K/mm3 (150-400); RDW Standard Deviation 43.7 fL (35.1-46.3); Red Blood Cell Count 4.61 M/mm3 (4.30-5.90); White Blood Cell Count 19.83 K/mm3 (4.00-11.30)
[2024-10-17 06:06] LABS: Bun/Creatinine Ratio 17.7 (12.0-20.0); Creatinine, Blood 1.3 mg/dL (0.60-1.20); Potassium, Blood 4.6 mmol/L (3.5-5.5)
[2024-10-17 07:11] VITALS: BP 132/71
[2024-10-17] MEDS ORDERED: Cholecalciferol 1000 Unit Tablet (=25MCG) PO SCH (09:00)
[2024-10-17] MEDS ORDERED: Losartan Potassium 25 MG Tab PO SCH (09:00)
[2024-10-17] MEDS ORDERED: Rivaroxaban 10 MG Tab PO SCH (09:00)
[2024-10-17] MEDS ORDERED: Percocet 5-3251 EACH PO ×2 (09:41)
--- NOTE | 2024-10-17 10:52 | NUR ---
DISCHARGE NOTE THIS RN ASSUMED CARE AT APPROX 0715. PATIENT ALERT AND ORIENTED X4. UP IN CHAIR. COMMUNICATES NEEDS EFFECTIVELY. POD 1 L JOSE. VSS. AQUACEL DRESSING C/D/I. WORKED WITH PHYSICAL THERAPY THIS MORNING - CLEARED TO DC HOME. TOLERATING PO INTAKE. VOIDING. PAIN TOLERABLE WITH PRESCRIBED THERAPY AND COOLING DEVICE. IV REMOVED. DC EDUCATION PROVIDED TO PATIENT AND HIS FAMILY - ALL STATE UNDERSTANDING. PATIENT TRANSFERRED TO PERSONAL VEHICLE VIA WHEELCHAIR AT APPROX 1025. PERSONAL BELONGINGS WITH PATIENT.
[2024-10-18] MEDS ORDERED: Omeprazole 20 MG CapCR PO SCH (09:00)
== END 2024-10-17 10:24 | disposition home or self-care (01) ==
LOC: ORSCMMR 05:51 → ORD 07:30 → ORSCMMR 07:30 → SURS 09:51 → ORSCMMR 10-17 10:24
PROVIDERS: Orthopaedic Surgery
PROC: 0SRB0JZ Replacement of Left Hip Joint with Synthetic Substitute, Open Approach (ICD-10-PCS; principal; 2024-10-16 07:30)
DX: M16.12 Unilateral primary osteoarthritis, left hip (principal); I12.9 Hypertensive chronic kidney disease with stage 1 through stage 4 chronic kidney disease, or unspecified chronic kidney disease; N18.9 Chronic kidney disease, unspecified; Z86.718 Personal history of other venous thrombosis and embolism; Z79.01 Long term (current) use of anticoagulants; K21.9 Gastro-esophageal reflux disease without esophagitis; Z79.899 Other long term (current) drug therapy
CPT/HCPCS: 36415; 72170; 80048; 85025; 97110; 97116; 97162; 97530; A9270; C1776; J0171; J0690; J0735; J1100; J1885; J2371; J2405; J2704; J2795; J3010; J7120

== ENCOUNTER 2024-10-20 11:34 | Emergency (ER) | payer MEDICARE, BC ==
[~2024-10-20] VITALS: Ht 167.6 cm; Wt 77.1 kg
[~2024-10-20 11:34] MED LIST changes: +Percocet 5-3251 EACH PO
[2024-10-20 12:10] VITALS: BP 110/75
[2024-10-20 12:45] LABS: BASOPHILS ABSOLUTE AUTO 0.05 K/mm3 (0.00-0.23); BASOPHILS PERCENT AUTO 0 % (0-2); EOSINOPHILS ABSOLUTE AUTO 0.26 K/mm3 (0.00-0.68); EOSINOPHILS PERCENT AUTO 2 % (0-6); Hematocrit 39.1 % (37.0-53.0); Hemoglobin 13.1 g/dL (13.5-17.5); IMMATURE GRAN ABSOLUTE AUTO 0.06 K/mm3 (0.00-0.10); IMMATURE GRAN PERCENT AUTO 0 % (0-1); LYMPHOCYTES ABSOLUTE AUTO 1.56 K/mm3 (0.84-5.20); LYMPHOCYTES PERCENT AUTO 10 % (21-46); MONOCYTES ABSOLUTE AUTO 1.19 K/mm3 (0.16-1.47); MONOCYTES PERCENT AUTO 8 % (4-13); Mean Corpuscular HGB 28.9 pg (26.0-34.0); Mean Corpuscular HGB Conc 33.5 g/dL (31.5-36.5); Mean Corpuscular Volume 86 fL (80-100); Mean Platelet Volume 10.4 fL (9.1-12.4); NEUTROPHILS ABSOLUTE AUTO 12.36 K/mm3 (1.96-9.15); NEUTROPHILS PERCENT AUTO 80 % (41-73); Platelet Count 323 K/mm3 (150-400); RDW Standard Deviation 44.9 fL (35.1-46.3); Red Blood Cell Count 4.53 M/mm3 (4.30-5.90); White Blood Cell Count 15.48 K/mm3 (4.00-11.30)
[2024-10-20 13:04] LABS: Albumin, Blood 2.7 g/dL (3.4-5.0); Albumin/Globulin Ratio 0.6 (0.8-1.8); Bilirubin, Total 0.6 mg/dL (0.1-1.0); Bun/Creatinine Ratio 16.5 (12.0-20.0); Calcium, Blood 9.2 mg/dL (8.5-10.1); Creatinine, Blood 1.09 mg/dL (0.60-1.20); Globulin, Blood 4.3 g/dL (2.2-4.0); Potassium, Blood 4.6 mmol/L (3.5-5.5)
== END 2024-10-20 13:44 | disposition left against medical advice (07) ==
LOC: ER 11:34
PROVIDERS: Physician Assistant
DX: M25.462 Effusion, left knee (principal); Z53.29 Procedure and treatment not carried out because of patient's decision for other reasons; R60.0 Localized edema; I10 Essential (primary) hypertension; E78.5 Hyperlipidemia, unspecified; Z86.718 Personal history of other venous thrombosis and embolism; Z79.899 Other long term (current) drug therapy
CPT/HCPCS: 80053; 85025; 93971; 99283-25

== ENCOUNTER 2024-10-20 14:57 | Emergency (ER) | payer MEDICARE, BC ==
[~2024-10-20] VITALS: Ht 167.6 cm; Wt 77.1 kg
[2024-10-20 15:20] VITALS: BP 140/74
== END 2024-10-20 15:25 | disposition home or self-care (01) ==
LOC: ER 14:57
DX: R60.0 Localized edema (principal); I10 Essential (primary) hypertension; E78.5 Hyperlipidemia, unspecified; Z86.718 Personal history of other venous thrombosis and embolism; Z79.899 Other long term (current) drug therapy
CPT/HCPCS: 99283-25